=== PATIENT | male | born 1985 | race Caucasian/White ===

== ENCOUNTER 2022-12-16 09:52 | Day surgery (SDC) | payer OTHER ==
[2022-12-13 12:02] VITALS: BMI 36.1
[2022-12-16] MEDS ORDERED: PROPOFOL 20 ML ONE (11:29)
== END 2022-12-16 12:19 | disposition home or self-care (01) ==
LOC: CSHSDC 09:52
PROVIDERS: ATTEND Internal Medicine Gastroenterology
PROC: 0DJD8ZZ Inspection of Lower Intestinal Tract, Via Natural or Artificial Opening Endoscopic (ICD-10-PCS; principal; 2022-12-16)
DX: Z12.11 Encounter for screening for malignant neoplasm of colon (principal); K64.9 Unspecified hemorrhoids; K62.89 Other specified diseases of anus and rectum; F43.10 Post-traumatic stress disorder, unspecified; F32.A Depression, unspecified; E78.5 Hyperlipidemia, unspecified; Z80.0 Family history of malignant neoplasm of digestive organs; Z86.010 Personal history of colon polyps
CPT/HCPCS: J2704